=== PATIENT | female | born 1995 | race Caucasian/White ===

== ENCOUNTER 2019-12-11 08:06 | Emergency (ER) | payer MEDICAID, OTHER ==
[2019-12-11] MEDS ORDERED: Lidocaine 1% with EPINEPHrine 1:100,000 20 ML MDV INJECT ONE (09:11)
[2019-12-11 09:12] VITALS: BP 137/92; PULSE 109
[2019-12-11] MEDS ORDERED: Bacitracin/Neomycin/Polymyxin B Oint 0.9 GM U/D Packet TOP ONE (09:32)
--- NOTE | 2019-12-11 09:49 | EDM.PDOC ---
ED HPI GENERAL MEDICAL PROBLEM - General Chief Complaint: Laceration Stated Complaint: LEG LACERATION Time Seen by Provider: 12/11/19 08:36 Source of Information: Reports: Patient, Police, Other (two close friends and her admissions officer) History Limitations: Reports: No Limitations - History of Present Illness INITIAL COMMENTS - FREE TEXT/NARRATIVE: Patient presents with a large laceration on right lower leg that happened 8 hours ago. She was drinking heavily last night and took a razor blade out of her shaver and cut herself. She has done this several times before but not in the last year or so. She tends to do it whenever she drinks much alcohol. She arrived via EMS after a friend called for her. She denies suicidal intent or serious self harm. She admits this cut went deeper than she intended. In the past she has been in treatment for alcohol and meth. No meth recently. She drinks rarely now but quite heavily when she does. Treatments DIRECTOR EXECUTIVE COMMUNICATIONS: Reports: Dressing(s) - Related Data Allergies Allergy/AdvReac Type Severity Reaction Status Date / Time morphine Allergy Unknown Airway Verified 12/11/19 08:39 Tightness Home Meds: Home Meds Ibuprofen 600 mg PO Q6HR PRN 07/17/19 [History] FLUoxetine HCl [Fluoxetine HCl] 20 mg PO DAILY 12/11/19 [History] Prazosin [Minpress] 1 mg PO BEDTIME 12/11/19 [History] traZODone HCl [Trazodone HCl] 50 mg PO BEDTIME 12/11/19 [History] valACYclovir HCl [valACYclovir] 1,000 mg PO DAILY 12/11/19 [History] Past Medical History - Past Health History Medical/Surgical History: Denies Medical/Surgical History HEENT History: Reports: None Cardiovascular History: Reports: Arrhythmia, Hypertension, Other (See Below) Other Cardiovascular History: Tachycardia due to caffeine and illicit drug use. Note preeclampsia as below. Respiratory History: Reports: Asthma, Bronchitis, Recurrent, Intubation, Previous, Other (See Below) Other Respiratory History: Exercise-induced asthma. Gastrointestinal History: Reports: Irritable Bowel Syndrome Genitourinary History: Reports: STD, Other (See Below) Other Genitourinary History: Chlamydia previously treated in 2018. Renal reflux treated with medical therapy during childhood. Currently being treated for H erpes 1 & 2. SHEET METAL MECHANIC History: Reports: , Other (See Below) Other SHEET METAL MECHANIC History: Emergent @ 38 weeks gestation secondary to preeclampsia with previous induction complicated by placental abruption and secondary hemmorhage at with transfusion of 4 units of packed red blood cells at that time on 05/14/15. Musculoskeletal History: Reports: None Neurological History: Reports: None Psychiatric History: Reports: Addiction, Anxiety, Depression, Psych Hospit alization(s), Suicide Attempt, Suicidal Ideation, Other (See Below) Other Psychiatric History: History of alcohol and illicit drug abuse as below. Note suicidal ideation with repeat gesture reactions, cutting wrists and etc. initial inpatient treatment at age 11 with additional inpatient care in September 2013 for her depression and alcohol abuse. [facility] in [place] for treatment of methamphetamine addiction in 2017. Hematologic History: Reports: Blood Transfusion(s), Other (See Below) Other Hematologic History: Blood transfusions secondary to placental abruption as above. Immunologic History: Reports: None Oncologic (Cancer) History: Reports: None Dermatologic History: Reports: None - Infectious Disease History Infectious Disease History: Reports: Herpes Other Infectious Disease History: Chlamydia as above. - Past Surgical History Head Surgeries/Procedures: Reports: None HEENT Surgical History: Reports: Oral Surgery, Other (See Below) Other HEENT Surgeries/Procedures: Multiple teeth extractions. Cardiovascular Surgical History: Reports: None Respiratory Surgical History: Reports: None GI Surgical History: Reports: None Female Surgical History: Reports: Section, Other (See Below) Other Female Surgeries/Procedures: Emergent as above on 05/14/15. Neurological Surgical History: Reports: None Musculoskeletal Surgical History: Reports: None Oncologic Surgical History: Reports: None Dermatological Surgical History: Reports: Other (See Below) - Past Imaging History Past Imaging History: Reports: CAT Scan (CT of the abdomen and pelvis on 04/17/14 11/18/12, and 03/31/11.), Ultrasound (Rodrigo ultrasound on 03/28/11) Social & Family History - Family History Family Medical History: Noncontributory Psychiatric: Reports: Anxiety, Depression, Other (See Below) Other Psychiatric Family History: Anxiety depression disorder with alcohol abuse in father. 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 Denies: Neck Pain, Shoulder Pain, Arm Pain, Back Pain Skin: Denies: Cyanosis, Jaundice, Mottled, Pallor, Diaphoresis Neurological: Denies: Confusion, Dizziness, Headache, Seizure, Syncope, Trouble Speaking, Difficulty Walking Psychiatric: Denies: Agitation, Anxiety, Confusion ED EXAM, SKIN/RASH Exam: See Below Exam Limited By: No Limitations General Appearance: Alert, WD/WN, No Apparent Distress Eye Exam: Bilateral Eye: EOMI, Normal Inspection, PERRL Ears: Normal External Exam, Hearing Grossly Normal Nose: Normal Inspection, No Blood Throat/Mouth: Normal Inspection, Normal Lips, Normal Voice, No Airway Compromise Head: Atraumatic, Normocephalic Neck: Normal Inspection, Full Range of Motion Respiratory/Chest: No Respiratory Distress, Lungs Clear, Normal Breath Sounds Cardiovascular: Regular Rate, Rhythm, No Murmur GI/Abdominal: Normal Bowel Sounds, Soft, Tender (a little tender suprapubic) Back Exam: Normal Inspection, Full Range of Motion. No: CVA Tenderness (L), CVA Tenderness (R) Extremities: Normal Range of Motion, No Pedal Edema, Normal Capillary Refill, Other (Approximately 7 cm transverse laceration of lateral middle lower right leg. It is gaping and goes into the subcutaneous layers. No nerve, tendon or muscle involvement. Distal CMS intact with normal sensation locally as well.) Neurological: Alert, Oriented, Normal Cognition, Normal Gait, No Motor/Sensory Deficits Psychiatric: Normal Affect, Normal Mood Skin: Warm, Dry, Intact, Normal Color, No Rash ED SKIN PROCEDURES - Laceration/Wound Repair Right Lower Lateral Leg Appearance: Subcutaneous, Linear, Clean Distal NVT: Neuro & Vascular Intact, No Tendon Injury Anesthetic Type: Local Local Anesthesia - Lidocaine (Xylocaine): 1% with EPI Local Anesthetic Volume: 5cc Skin Prep: Chlorhexidine (Hibiciens), Saline Saline Irrigation (cc's): 300 Exploration/Debridement/Repair: Wound Explored, In a Bloodless Field, Explored to Base Closed with: Sutures Lac/Wound length In cm: 7 Suture Size: 4-0 # of Sutures: 14 Suture Type: Nylon, Interrupted, Simple Suture Size: Other (0) # of Sutures: 4 Repaired with: Vicryl Drain Placement: No Sterile Dressing Applied: Nurse Tetanus Status Addressed: Yes Complications: No Course - Vital Signs Last Recorded V/S: Last Vital Signs Temp 98 F 12/11/19 08:20 Pulse 109 H 12/11/19 08:20 Resp 16 12/11/19 08:20 BP 137/92 H 12/11/19 08:20 Pulse Ox 94 L 12/11/19 08:20 - Orders/Labs/Meds Meds: Medications Discontinued Medications Generic Name Dose Route Start Last Admin Trade Name Tabatha PRN Reason Stop Dose Admin Lidocaine/Epinephrine 5 ml 12/11/19 09:11 12/11/19 09:11 Xylocaine 1% With Epinephrine 1:100,000 INJECT 12/11/19 09:12 5 ml ONETIME ONE Administration Neomycin/Polymyxin/Bacitracin 1 each 12/11/19 09:32 Triple Antibiotic Oint TOP 12/11/19 09:33 ONETIME ONE - Re-Assessments/Exams Free Text/Narrative Re-Assessment/Exam: 12/11/19 10:00 Laceration sutured using sterile technique throughout. Patient tolerated the procedure well. Tetanus status 4 years s/p per our records. Discussed findings and treatment plan with patient and her friends who are helping her for now. Her admissions officer is here and visited with her. aoc operations intelligence chief here also. Patient will be discharged to home and will be followed closely by admissions officer, who will be developing a plan for going forward concerning alcohol treatment, etc. Patient discharged to home in stable condition. 12/11/19 10:24 After patient was discharged I remembered we had talked about doing a UA for possible UTI. The nurse will inform patient to follow up with her PCP for this. Departure - Departure Time of Disposition: 09:38 Disposition: Home, Self-Care 01 Condition: Good Clinical Impression: Laceration of lower leg without complication Qualifiers: Encounter type: initial encounter Laterality: right Qualified Code(s): S81.811A - Laceration without foreign body, right lower leg, initial encounter - Discharge Information Instructions: Sutured Wound Care, [id number] Referrals: Janny Villareal MD [Physician] - Additional Instructions: Keep the wound clean and dry except for showering. Use topical antibiotic ointment or petroleum jelly daily over the stitches. Cover with sterile bandages daily. Use Ibuprofen or Tylenol as directed for pain control if needed. Follow up with your PCP in ten days for suture removal. Recheck sooner if any sign of infection or other problems. Sepsis Event Note (ED) - Evaluation Sepsis Screening Result: No Definite Risk - Focused Exam Vital Signs: Vital Signs Temp Pulse Resp BP Pulse Ox 12/11/19 08:20 98 F 109 H 16 137/92 H 94 L
== END 2019-12-11 10:05 | disposition home or self-care (01) ==
LOC: KA.ED 08:06
DX: S81.811A Laceration without foreign body, right lower leg, initial encounter (principal); I10 Essential (primary) hypertension; F32.9 Major depressive disorder, single episode, unspecified; J45.909 Unspecified asthma, uncomplicated; F41.9 Anxiety disorder, unspecified; Z79.899 Other long term (current) drug therapy; Z88.5 Allergy status to narcotic agent; W27.8XXA Contact with other nonpowered hand tool, initial encounter
CPT/HCPCS: 12002; 12032; 99283-25; 99284

== ENCOUNTER 2020-01-19 10:37 | Emergency (ER) | payer MEDICAID ==
[2020-01-19 10:55] VITALS: BP 123/76; PULSE 100
[2020-01-19] MEDS: Fluconazole 100 MG Tab PO ONE (11:44)
--- NOTE | 2020-01-19 11:51 | EDM.PDOC ---
ED HPI GENERAL MEDICAL PROBLEM - General Chief Complaint: Genitourinary Problem Stated Complaint: UTI?? YEAST INFECTION? Time Seen by Provider: 01/19/20 10:45 Source of Information: Reports: Patient History Limitations: Reports: No Limitations - History of Present Illness INITIAL COMMENTS - FREE TEXT/NARRATIVE: 24-year-old female presents emergency room with the complaint of a painful urination and discharge over the last 48-72 hours. She has been trying some [id number] yeast preparation with no relief. Denies any fever or chills, no nausea or vomiting no abdominal pain. She's noticed a little bit of lower back discomfort. She states that she is in a monogamous relationship. She had STD testing a month ago and was positive for herpes. She was started on acyclovir. She states her tests were negative for gonorrhea, syphilis. She denies any significant hematuria. She has noticed some white discharge. Onset: Gradual Onset Date: 01/16/20 Duration: Day(s):, Constant Location: Reports: Pelvis Quality: Reports: Burning Severity: Moderate Improves with: Reports: None Worsens with: Reports: None Associated Symptoms: Denies: Fever/Chills, Nausea/Vomiting Treatments DATA CENTER ARCHITECT: Reports: Other (see below) (Irmg-[id number] yeast preparation) Vaginal Pain Score (Numeric/FACES): 3 - Related Data Allergies Allergy/AdvReac Type Severity Reaction Status Date / Time morphine Allergy Unknown Airway Verified 01/19/20 10:51 Tightness Home Meds: Home Meds Ibuprofen 800 mg PO TID PRN 07/17/19 [History] FLUoxetine HCl [Fluoxetine HCl] 20 mg PO DAILY 12/11/19 [History] Prazosin [Minpress] 1 mg PO BEDTIME 12/11/19 [History] traZODone HCl [Trazodone HCl] 50 mg PO BEDTIME 12/11/19 [History] valACYclovir HCl [valACYclovir] 1,000 mg PO DAILY 12/11/19 [History] Past Medical History - Past Health History Medical/Surgical History: Denies Medical/Surgical History HEENT History: Reports: None Cardiovascular History: Reports: Arrhythmia, Hypertension, Other (See Below) Other Cardiovascular History: Tachycardia due to caffeine and illicit drug use. Note preeclampsia as below. Respiratory History: Reports: Asthma, Bronchitis, Recurrent, Other (See Below) Other Respiratory History: Exercise-induced asthma. Gastrointestinal History: Reports: Irritable Bowel Syndrome Genitourinary History: Reports: STD, Other (See Below) Other Genitourinary History: Chlamydia previously treated in 2018. Renal reflux treated with medical therapy during childhood. Currently being treated for Herpes 1 & 2. HOOD FITTER History: Reports: , Other (See Below) Other HOOD FITTER History: Emergent @ 38 weeks gestation secondary to preeclampsia with previous induction complicated by placental abruption and secondary hemmorhage at with transfusion of 4 units of packed red blood cells at that time on 05/14/15. Musculoskeletal History: Reports: None Neurological History: Reports: None Psychiatric History: Reports: Addiction, Anxiety, Depression, Psych Hospitalization(s), Suicide Attempt, Suicidal Ideation, Other (See Below) Other Psychiatric History: History of alcohol and illicit drug abuse as below. Note suicidal ideation with repeat gesture reactions, cutting wrists and etc. initial inpatient treatment at age 11 with additional inpatient care in September 2013 for her depression and alcohol abuse. [facility] in [place] [id number] for treatment of methamphetamine addiction in 2016. Hematologic History: Reports: Blood Transfusion(s), Other (See Below) Other Hematologic History: Blood transfusions secondary to placental abruption as above. Immunologic History: Reports: None Oncologic (Cancer) History: Reports: None Dermatologic History: Reports: None - Infectious Disease History Infectious Disease History: Reports: Chicken Pox, Herpes Other Infectious Disease History: Chlamydia as above. - Past Surgical History Head Surgeries/Procedures: Reports: None HEENT Surgical History: Reports: Oral Surgery, Other (See Below) Other HEENT Surgeries/Procedures: Multiple teeth extractions. Cardiovascular Surgical History: Reports: None Respiratory Surgical History: Reports: None GI Surgical History: Reports: None Female Surgical History: Reports: Section, Other (See Below) Other Female Surgeries/Procedures: Emergent as above on 05/14/15. Neurological Surgical History: Reports: None Musculoskeletal Surgical History: Reports: None Oncologic Surgical History: Reports: None - Past Imaging History Past Imaging History: Reports: CAT Scan (CT of the abdomen and pelvis on 04/17/14 11/18/12, and 03/31/11.), Ultrasound (Rodrigo ultrasound on 03/28/11) Social & Family History - Family History Family Medical History: Noncontributory Psychiatric: Reports: Anxiety, Depression, Other (See Below) Other Psychiatric Family History: Anxiety depression disorder with alcohol abuse in father. 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 ED EXAM, RENAL/ - Physical Exam Exam: See Below Exam Limited By: No Limitations General Appearance: Alert, WD/WN, No Apparent Distress Ears: Hearing Grossly Normal Nose: Normal Inspection Throat/Mouth: Normal Inspection, Normal Voice, No Airway Compromise Head: Atraumatic Neck: Normal Inspection Respiratory/Chest: No Respiratory Distress, Lungs Clear, Normal Breath Sounds, No Accessory Muscle Use Cardiovascular: Normal Peripheral Pulses, Regular Rate, Rhythm, No Murmur GI/Abdominal: Normal Bowel Sounds, Soft, Non-Tender (Female) Exam: Vaginal Discharge Back Exam: Normal Inspection, Full Range of Motion. No: CVA Tenderness (L), CVA Tenderness (R) Extremities: Normal Inspection, Normal Range of Motion Neurological: Alert, Oriented, No Motor/Sensory Deficits Psychiatric: Normal Affect, Normal Mood Skin Exam: Warm, Dry, Intact, Normal Color, No Rash Lymphatic: No Adenopathy Course - Vital Signs Last Recorded V/S: Last Vital Signs Temp 99.3 F 01/19/20 10:51 Pulse 100 01/19/20 10:51 Resp 18 01/19/20 10:51 BP 123/76 01/19/20 10:51 Pulse Ox 99 01/19/20 10:51 - Orders/Labs/Meds Orders: Active Orders 24 hr Category Date Time Status CULTURE URINE [RM] Stat Lab 01/19/20 11:26 Ordered Labs: Laboratory Tests 01/19/20 Range/Units 11:01 Specimen Type Urincc Urine Color Yellow (YELLOW) Urine Appearance Clear (CLEAR) Urine pH 7.0 (5.0-9.0) Ur Specific [place] 1.025 (1.005-1.030) Urine Protein Negative (NEGATIVE) mg/dL Urine Glucose (UA) Negative (NEGATIVE) mg/dL Urine Ketones Negative (NEGATIVE) mg/dL Urine Occult Blood Trace-lysed H (NEGATIVE) Urine Nitrite Negative (NEGATIVE) Urine Bilirubin Negative (NEGATIVE) Urine Urobilinogen 0.2 (0.2-1.0) E.U./dL Ur Leukocyte Esterase Negative (NEGATIVE) Urine RBC 0-5 (0-5) /HPF Urine WBC 10-20 H (0-5) /HPF Ur Epithelial Cells Many H /LPF Urine Bacteria Many H (NONE TO FEW) /HPF Meds: Medications Discontinued Medications Generic Name Dose Route Start Last Admin Trade Name Freq PRN Reason Stop Dose Admin Fluconazole 200 mg 01/19/20 11:27 01/19/20 11:44 Diflucan PO 01/19/20 11:28 200 mg ONETIME ONE Administration Departure - Departure Time of Disposition: 11:54 Disposition: Home, Self-Care 01 Condition: Good Clinical Impression: Yeast infection involving the vagina and surrounding area - Discharge Information Instructions: Vaginal Yeast Infection, Adult, Urinary Tract Infection, Adult, [id number] Referrals: Unique Alvares, POWER DIGGER OPERATOR [Primary Care Provider] - Forms: ED Department Discharge Additional Instructions: 1. Diflucan 100 mg 2 by mouth 1 time for yeast infection. 2. Urine has been cultured you should follow-up with your primary care with these results within 48-72 hours. 3. Follow-up with primary care if the itching and burning and discharge does not improve. Sepsis Event Note (ED) - Evaluation Sepsis Screening Result: No Definite Risk - Focused Exam Vital Signs: Vital Signs Temp Pulse Resp BP Pulse Ox 01/19/20 10:51 99.3 F 100 18 123/76 99 - My Orders Last 24 Hours: My Active Orders 01/19/20 11:26 CULTURE URINE [RM] Stat - Assessment/Plan Last 24 Hours: My Active Orders 01/19/20 11:26 CULTURE URINE [RM] Stat Assessment:: 1. Yeast infection genital. 2. Possible urinary tract infection cultures pending. Plan: 1. Diflucan 100 mg 2 by mouth 1 time for yeast infection. 2. Urine has been cultured you should follow-up with your primary care with these results within 48-72 hours. 3. Follow-up with primary care if the itching and burning and discharge does not improve.
== END 2020-01-19 12:00 | disposition home or self-care (01) ==
LOC: KA.ED 10:37
DX: B37.3 Candidiasis of vulva and vagina (principal); I10 Essential (primary) hypertension; J45.909 Unspecified asthma, uncomplicated; F41.9 Anxiety disorder, unspecified; F32.9 Major depressive disorder, single episode, unspecified; F17.210 Nicotine dependence, cigarettes, uncomplicated; Z88.5 Allergy status to narcotic agent; Z79.899 Other long term (current) drug therapy; Z98.890 Other specified postprocedural states
CPT/HCPCS: 81001; 87086; 87088; 87186; 99283; 99284; A9270-GY

== ENCOUNTER 2020-09-05 09:25 | Emergency (ER) | payer MEDICAID ==
--- NOTE | 2020-09-05 09:58 | EDM.PDOC ---
ED HPI GENERAL MEDICAL PROBLEM - General Chief Complaint: ENT Problem Stated Complaint: SORE THROAT Time Seen by Provider: 09/05/20 09:49 - History of Present Illness INITIAL COMMENTS - FREE TEXT/NARRATIVE: Presents emergency room for chief complaint of sore throat. She woke up this morning with a sore throat and noticed that her uvula was swollen. She denies it being deviated. Denies any other URI symptoms. Patient denies any trouble breathing or trouble swallowing however does hurt to swallow. History of strep in the past, no new exposures. She notes starting to vape again and she does smoke daily. She did get her COVID-19 Pfizer vaccine 48 hours ago. There is no stridor or angioedema wheezing or any other concerning symptoms. - Related Data Allergies Allergy/AdvReac Type Severity Reaction Status Date / Time morphine Allergy Unknown Airway Verified 01/19/20 10:51 Tightness Home Meds: Home Meds Ibuprofen 800 mg PO TID PRN 07/17/19 [History] FLUoxetine HCl [Fluoxetine HCl] 20 mg PO DAILY 12/11/19 [History] Prazosin [Minpress] 1 mg PO BEDTIME 12/11/19 [History] traZODone HCl [Trazodone HCl] 50 mg PO BEDTIME 12/11/19 [History] valACYclovir HCl [valACYclovir] 1,000 mg PO DAILY 12/11/19 [History] Past Medical History - Past Health History Medical/Surgical History: Denies Medical/Surgical History HEENT History: Reports: None Cardiovascular History: Reports: Arrhythmia, Hypertension, Other (See Below) Other Cardiovascular History: Tachycardia due to caffeine and illicit drug use. Note preeclampsia as below. Respiratory History: Reports: Asthma, Bronchitis, Recurrent, Other (See Below) Other Respiratory History: Exercise-induced asthma. Gastrointestinal History: Reports: Irritable Bowel Syndrome Genitourinary History: Reports: STD, Other (See Below) Other Genitourinary History: Chlamydia previously treated in 2018. Renal reflux treated with medical therapy during childhood. Currently being treated for Herpes 1 & 2. INCINERATOR ATTENDANT History: Reports: , Other (See Below) Other INCINERATOR ATTENDANT History: Emergent @ 38 weeks gestation secondary to preeclampsia with previous induction complicated by placental abruption and secondary hemmorhage at with transfusion of 4 units of packed red blood cells at that time on 05/14/15. Musculoskeletal History: Reports: None Neurological History: Reports: None Psychiatric History: Reports: Addiction, Anxiety, Depression, Psych Hospitalization(s), Suicide Attempt, Suicidal Ideation, Other (See Below) Other Psychiatric History: History of alcohol and illicit drug abuse as below. Note suicidal ideation with repeat gesture reactions, cutting wrists and etc. initial inpatient treatment at age 11 with additional inpatient care in September 2013 for her depression and alcohol abuse. [facility] in [place] [address] for treatment of methamphetamine addiction in 2016. Hematologic History: Reports: Blood Transfusion(s), Other (See Below) Other Hematologic History: Blood transfusions secondary to placental abruption as above. Immunologic History: Reports: None Oncologic (Cancer) History: Reports: None Dermatologic History: Reports: None - Infectious Disease History Infectious Disease History: Reports: Chicken Pox, Herpes Other Infectious Disease History: Chlamydia as above. - Past Surgical History Head Surgeries/Procedures: Reports: None HEENT Surgical History: Reports: Oral Surgery, Other (See Below) Other HEENT Surgeries/Procedures: Multiple teeth extractions. Cardiovascular Surgical History: Reports: None Respiratory Surgical History: Reports: None GI Surgical History: Reports: None Female Surgical History: Reports: Section, Other (See Below) Other Female Surgeries/Procedures: Emergent as above on 05/14/15. Neurological Surgical History: Reports: None Musculoskeletal Surgical History: Reports: None Oncologic Surgical History: Reports: None - Past Imaging History Past Imaging History: Reports: CAT Scan (CT of the abdomen and pelvis on 04/17/14 11/18/12, and 03/31/11.), Ultrasound (Rodrigo ultrasound on 03/28/11) Social & Family History - Family History Family Medical History: No Pertinent Family History Psychiatric: Reports: Anxiety, Depression, Other (See Below) Other Psychiatric Family History: Anxiety depression disorder with alcohol abuse in father. 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 Constitutional: Reports: Fatigue. Denies: Fever, Chills HEENT: Reports: Throat Pain. Denies: Throat Swelling Respiratory: Reports: No Symptoms. Denies: Cough GI/Abdominal: Reports: No Symptoms Musculoskeletal: Reports: No Symptoms Skin: Reports: No Symptoms Neurological: Reports: No Symptoms ED EXAM, ENT - Physical Exam Exam: See Below Exam Limited By: No Limitations General Appearance: Alert, WD/WN, No Apparent Distress Ears: Normal Canal, Normal TMs Nose: Normal Inspection, Normal Mucousa Mouth/Throat: Pharyngeal Erythema, Throat Pain, Uvular Edema. No: Lip Swelling, Peritonsillar Mass, Throat Swelling, Tongue Swelling, Tonsillar Exudates, Tonsillar Swelling, Uvular Deviation Neck: Normal Inspection, Supple, Non-Tender, Full Range of Motion, Other (mild cervical lymphadenopathy ) Respiratory/Chest: No Respiratory Distress, Lungs Clear, Normal Breath Sounds Cardiovascular: Normal Peripheral Pulses, Regular Rate, Rhythm Neurological: Alert, Oriented Psychiatric: Normal Affect, Normal Mood Skin: Warm, Dry, Intact, No Rash Course - Orders/Labs/Meds Orders: Active Orders 24 hr Category Date Time Status STREP SCRN A RAPID W CULT CONF [RM] Stat Lab 09/05/20 09:49 Ordered Meds: Medications Discontinued Medications Generic Name Dose Route Start Last Admin Trade Name Freq PRN Reason Stop Dose Admin Ibuprofen 400 mg 09/05/20 09:50 Ibuprofen 400 Mg Tab PO 09/05/20 09:51 ONETIME ONE - Re-Assessments/Exams Free Text/Narrative Re-Assessment/Exam: 09/05/20 09:57 Rapid strep reflex with throat culture, 400 milligrams a ibuprofen given. Gargle salt water rinses discussed with patient. Doubt this is mono would not change plan of care measures patient not active in sports, could be related to the vaccine administration or due to a viral pharyngitis or irritant from the vaping and smoking. Tobacco cessation discussed with patient. Patient verbalized understanding. Patient was notified of rapid strep was negative she will be contacted with throat culture results. Departure - Departure Time of Disposition: 09:58 Disposition: DC/Tfer to Hospice - Home 48 Condition: Good Clinical Impression: Sore throat, Viral pharyngitis - Discharge Information *PRESCRIPTION DRUG MONITORING PROGRAM REVIEWED*: No *COPY OF PRESCRIPTION DRUG MONITORING REPORT IN PATIENT TORO: No Instructions: Pharyngitis, [id number] Referrals: Janny Villareal MD [Primary Care Provider] - Additional Instructions: ibuprofen 400 mg every 4-6 hours as need for pain and swelling, always take it with food gargle warm salt water rinses watch out for neck swelling, deviated uvula , or any worsening symptoms. I do encourage you to stop smoking and vaping NOW before further damage is resulting with your throat. - My Orders Last 24 Hours: My Active Orders 09/05/20 09:49 STREP SCRN A RAPID W CULT CONF [RM] Stat - Assessment/Plan Last 24 Hours: My Active Orders 09/05/20 09:49 STREP SCRN A RAPID W CULT CONF [RM] Stat
[2020-09-05] MEDS: Ibuprofen 400 MG Tab PO ONE (10:00)
[2020-09-05 10:25] VITALS: BP 132/86; PULSE 94
== END 2020-09-05 10:05 | disposition home or self-care (01) ==
LOC: KA.ED 09:25
DX: J02.9 Acute pharyngitis, unspecified (principal); I10 Essential (primary) hypertension; J45.909 Unspecified asthma, uncomplicated; Z88.5 Allergy status to narcotic agent; Z79.899 Other long term (current) drug therapy
CPT/HCPCS: 87070; 87430; 99283; A9270

== ENCOUNTER 2020-09-12 17:50 | Emergency (ER) | payer MEDICAID ==
[2020-09-12 18:25] VITALS: BP 137/72; PULSE 114
[2020-09-12] MEDS ORDERED: Lidocaine 1% 20 ML MDV ONE (18:29)
[2020-09-12] MEDS ORDERED: cefTRIAXone 2 GM Vial IVPUSH ONE (19:05)
[2020-09-12] MEDS ORDERED: cefTRIAXone 2 GM Vial ONE (19:06)
--- NOTE | 2020-09-12 19:21 | EDM.PDOC ---
ED HPI GENERAL MEDICAL PROBLEM - General Chief Complaint: General Stated Complaint: LEFT KNEE REDNESS Time Seen by Provider: 09/12/20 18:00 Source of Information: Reports: Patient History Limitations: Reports: No Limitations - History of Present Illness INITIAL COMMENTS - FREE TEXT/NARRATIVE: 25-year-old female presents emergency room with complaints of swelling and redness overlying her left anterior knee. She has noticed that pain discomfort is increased over the last 24 hours and has had some discomfort to the knee for 2 days. She reports she was working on her house carrying out some carpet this past week. She also states to me that she has a significant past medical history of drug dependency and has been using methamphetamine. She denies any IV drug use. She denies history of hepatitis or HIV. She denies any swelling about the knee other than anteriorly. She denies any fever or chills. She denies other multiple multiple joint arthralgia complaints. Onset: Gradual Onset Date: 09/18/20 Duration: Hour(s):, Getting Worse Location: Reports: Lower Extremity, Left (left knee) Quality: Reports: Ache Severity: Mild Improves with: Reports: None Worsens with: Reports: Movement Associated Symptoms: Reports: No Other Symptoms Left Knee Pain Score (Numeric/FACES): 8 - Related Data Allergies Allergy/AdvReac Type Severity Reaction Status Date / Time morphine Allergy Redness Verified 09/12/20 18:26 Home Meds: Home Meds Ibuprofen 800 mg PO TID PRN 07/17/19 [History] FLUoxetine HCl [Fluoxetine HCl] 40 mg PO DAILY 12/11/19 [History] Prazosin [Minpress] 1 mg PO BEDTIME 12/11/19 [History] valACYclovir HCl [valACYclovir] 1,000 mg PO DAILY 12/11/19 [History] Eszopiclone [Lunesta] 2 mg PO BEDTIME PRN 09/12/20 [History] QUEtiapine [SEROquel] 100 mg PO DAILY 09/12/20 [History] Past Medical History - Past Health History Medical/Surgical History: Denies Medical/Surgical History HEENT History: Reports: None Cardiovascular History: Reports: Arrhythmia, Hypertension, Other (See Below) Other Cardiovascular History: Tachycardia due to caffeine and illicit drug use. Note preeclampsia as below. Respiratory History: Reports: Asthma, Bronchitis, Recurrent, Other (See Below) Other Respiratory History: Exercise-induced asthma. Gastrointestinal History: Reports: Irritable Bowel Syndrome Genitourinary History: Reports: STD, Other (See Below) Other Genitourinary History: Chlamydia previously treated in 2018. Renal reflux treated with medical therapy during childhood. Currently being treated for Herpes 1 & 2. BLEACH PACKER History: Reports: , Other (See Below) Other BLEACH PACKER History: Emergent @ 38 weeks gestation secondary to preeclampsia with previous induction complicated by placental abruption and secondary hemmorhage at with transfusion of 4 units of packed red blood cells at that time on 05/14/15. Musculoskeletal History: Reports: None Neurological History: Reports: None Psychiatric History: Reports: Addiction, Anxiety, Depression, Psych Hospitalization(s), Suicide Attempt, Suicidal Ideation, Other (See Below) Other Psychiatric History: History of alcohol and illicit drug abuse as below. Note suicidal ideation with repeat gesture reactions, cutting wrists and etc. initial inpatient treatment at age 11 with additional inpatient care in September 2013 for her depression and alcohol abuse. [facility] in [place] [address] for treatment of methamphetamine addiction in 2016. Hematologic History: Reports: Blood Transfusion(s), Other (See Below) Other Hematologic History: Blood transfusions secondary to placental abruption as above. Immunologic History: Reports: None Oncologic (Cancer) History: Reports: None Dermatologic History: Reports: None - Infectious Disease History Infectious Disease History: Reports: Chicken Pox, Herpes Other Infectious Disease History: Chlamydia as above. - Past Surgical History Head Surgeries/Procedures: Reports: None HEENT Surgical History: Reports: Oral Surgery, Other (See Below) Other HEENT Surgeries/Procedures: Multiple teeth extractions. Cardiovascular Surgical History: Reports: None Respiratory Surgical History: Reports: None GI Surgical History: Reports: None Female Surgical History: Reports: Section, Other (See Below) Other Female Surgeries/Procedures: Emergent as above on 05/14/15. Neurological Surgical History: Reports: None Musculoskeletal Surgical History: Reports: None Oncologic Surgical History: Reports: None Dermatological Surgical History: Reports: Other (See Below) - Past Imaging History Past Imaging History: Reports: CAT Scan (CT of the abdomen and pelvis on 04/17/14 11/18/12, and 03/31/11.), Ultrasound (Rodrigo ultrasound on 03/28/11) Social & Family History - Family History Family Medical History: No Pertinent Family History Psychiatric: Reports: Anxiety, Depression, Other (See Below) Other Psychiatric Family History: Anxiety depression disorder with alcohol abuse in father. - Tobacco Use Tobacco Use Status *Q: Current Every Day Tobacco User Years of Tobacco use: 12 Packs/Tins Daily: 2 Used Tobacco, but Quit: No Second Hand Smoke Exposure: Yes - Caffeine Use Caffeine Use: Reports: Coffee, Energy Drinks, Soda Other Caffeine Use: 2-4 bottles of redbull a day. 1 cup of coffee daily. 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 Denies: Joint Pain Skin: Reports: Wound (puncture wound left knee), Change in Color (redness, left knee) Neurological: Reports: No Symptoms Psychiatric: Reports: Anxiety, Depression Hematologic/Lymphatic: Reports: No Symptoms Immunologic: Reports: No Symptoms ED EXAM, GENERAL - Physical Exam Exam: See Below Exam Limited By: No Limitations General Appearance: Alert, Anxious Eye Exam: Bilateral Eye: EOMI Ears: Hearing Grossly Normal Throat/Mouth: Normal Voice, No Airway Compromise Head: Atraumatic Neck: Normal Inspection Respiratory/Chest: No Respiratory Distress Back Exam: Normal Inspection Extremities: Increased Warmth (left knee anterior), Redness (left anterior knee), Other (tenderness and swelling left knee). No: Joint Swelling, Limited Range of Motion Neurological: Alert, Oriented, No Motor/Sensory Deficits Psychiatric: Anxious Skin Exam: Erythema (left knee anterior), Tattoo(s), Wound/Incision (puncture wound left knee anterior), Other (previous cutting scars wrist and legs) ED GENERAL MEDICAL PROCEDURES - Additional/Other Procedure(s) Other (Free Text) Procedure(s): Left knee was sterilely prepped with ChloraPrep. 5 cc of lidocaine was injected into the prepatellar bursa. 18-gauge needle and 10 cc syringe was used for aspirating bloody fluid for cultures. Aerobic, anaerobic, and Gram stain were ordered. Course - Vital Signs Last Recorded V/S: Last Vital Signs Temp 98.1 F 09/12/20 18:18 Pulse 114 H 09/12/20 18:18 Resp 20 09/12/20 18:18 BP 137/72 09/12/20 18:18 Pulse Ox 99 09/12/20 18:18 - Orders/Labs/Meds Orders: Active Orders 24 hr Category Date Time Status Knee Min 4V Lt [CR] Stat Exams 09/12/20 18:13 Ordered CULTURE WOUND [RM] Stat Lab 09/12/20 19:21 Ordered Labs: Laboratory Tests 09/12/20 Range/Units 18:20 WBC 13.45 H (5.00-10.00) 10^3/uL RBC 4.00 (3.80-5.50) 10^6/uL Hgb 12.2 (12.0-16.0) g/dL Hct 34.9 L (37.0-47.0) % MCV 87.3 (82.0-92.0) fL MCH 30.5 (27.0-31.0) pg MCHC 35.0 (32.0-36.0) g/dL RDW 14.4 (11.5-14.5) % Plt Count 398 (150-400) 10^3/uL MPV 10.0 (7.4-10.4) fL Immature Gran % (Auto) 0.2 (0.0-5.0) % Neut % (Auto) 77.8 H (50.0-70.0) % Lymph % (Auto) 12.9 L (20.0-40.0) % Foard % (Auto) 8.6 H (2.0-8.0) % Eos % (Auto) 0.2 L (1.0-3.0) % Baso % (Auto) 0.3 (0.0-1.0) % Neut # (Auto) 10.47 H (2.50-7.00) 10^3/uL Lymph # (Auto) 1.73 (1.00-4.00) 10^3/uL Foard # (Auto) 1.15 H (0.10-0.80) 10^3/uL Eos # (Auto) 0.03 L (0.10-0.30) 10^3/uL Baso # (Auto) 0.04 (0.00-0.10) 10^3/uL Immature Gran # (Auto) 0.03 (0.00-0.50) 10^3/uL Meds: Medications Discontinued Medications Generic Name Dose Route Start Last Admin Trade Name Tabatha PRN Reason Stop Dose Admin Ceftriaxone Sodium 2 gm 09/12/20 19:05 09/12/20 19:16 Ceftriaxone 2 Gm Vial IVPUSH 09/12/20 19:06 2 gm ONETIME ONE Administration Ceftriaxone Sodium Confirm 09/12/20 19:06 09/12/20 19:42 Ceftriaxone 2 Gm Vial Administered 09/12/20 19:07 Not Given Dose 2 gm .ROUTE .STK-MED ONE Lidocaine HCl Confirm 09/12/20 18:29 09/12/20 19:42 Lidocaine 1% 20 Ml Mdv Administered 09/12/20 18:30 Not Given Dose 20 ml .ROUTE .STK-MED ONE Lidocaine HCl 20 ml 09/12/20 19:40 09/12/20 19:00 Lidocaine 1% 20 Ml Mdv INJECT 09/12/20 19:41 5 ml ONETIME ONE Administration - Re-Assessments/Exams Free Text/Narrative Re-Assessment/Exam: 09/12/20 22:05 Patient was given 2 g of IV Rocephin tonight. IV was removed. Patient has a strong drug history and is currently using methamphetamine. She will return to the hospital for outpatient IV antibiotics for the next 48 hours. Departure - Departure Time of Disposition: 19:35 Disposition: Home, Self-Care 01 Condition: Good Clinical Impression: Septic prepatellar bursitis of left knee, Methamphetamine dependence - Discharge Information Instructions: Prepatellar Bursitis Referrals: Janny Villareal MD [Primary Care Provider] - Forms: ED Department Discharge Care Plan Goals: 1. Rocephin 2 g IV every 24 hours for 48 hours. 2. Keflex 500 mg 3 times daily for 7 days. Begin after 48 hours completion of IV antibiotics 3. Follow-up Monday with your primary care to review culture and sensitivities from left knee bursa aspiration. Cultures include Gram stain, anaerobic, aerobic cultures. 4. Discussed with the patient possibility of needing an I&D left septic prepatellar bursa if this does not clear up with IV and oral antibiotics. Sepsis Event Note (ED) - Evaluation Sepsis Screening Result: No Definite Risk - Focused Exam Vital Signs: Vital Signs Temp Pulse Resp BP Pulse Ox 09/12/20 18:18 98.1 F 114 H 20 137/72 99 - My Orders Last 24 Hours: My Active Orders 09/12/20 18:13 Knee Min 4V Lt [CR] Stat 09/12/20 19:21 CULTURE WOUND [RM] Stat - Assessment/Plan Last 24 Hours: My Active Orders 09/12/20 18:13 Knee Min 4V Lt [CR] Stat 09/12/20 19:21 CULTURE WOUND [RM] Stat Assessment:: Left knee septic prepatellar bursitis Plan: 1. Rocephin 2 g IV every 24 hours for 48 hours. 2. Keflex 500 mg 3 times daily for 7 days. Begin after 48 hours completion of IV antibiotics 3. Follow-up Monday with your primary care to review culture and sensitivities from left knee bursa aspiration. Cultures include Gram stain, anaerobic, aerobic cultures. 4. Discussed with the patient possibility of needing an I&D left septic prepatellar bursa if this does not clear up with IV and oral antibiotics.
[2020-09-12] MEDS ORDERED: Lidocaine 1% 20 ML MDV INJECT ONE (19:40)
== END 2020-09-12 19:35 | disposition home or self-care (01) ==
LOC: KA.ED 17:50
DX: M70.42 Prepatellar bursitis, left knee (principal); F15.20 Other stimulant dependence, uncomplicated; I10 Essential (primary) hypertension; J45.909 Unspecified asthma, uncomplicated; Z72.0 Tobacco use; Z88.5 Allergy status to narcotic agent; Z79.899 Other long term (current) drug therapy
CPT/HCPCS: 20610; 36415; 73562-LT; 85025; 87070; 87075; 87205; 96374; 99283-25; 99284; J0696

== ENCOUNTER 2020-09-20 13:09 | Emergency (ER) | payer MEDICAID ==
[2020-09-20 13:21] VITALS: BP 128/83; PULSE 96
[2020-09-20 14:05] LABS: ANION GAP 13.7 mmol/L (5-15); CHLORIDE,CL 105 mmol/L (98-107); SODIUM,NA 144 mmol/L (136-145)
--- NOTE | 2020-09-20 14:26 | EDM.PDOC ---
ED HPI GENERAL MEDICAL PROBLEM - General Chief Complaint: General Stated Complaint: NOT FEELING WELL Time Seen by Provider: 09/20/20 13:59 Source of Information: Reports: Patient, Significant Other History Limitations: Reports: No Limitations - History of Present Illness INITIAL COMMENTS - FREE TEXT/NARRATIVE: Patient presents with a myriad of symptoms including tingling in her fingers and toes, burning with urination that started today, pain over her "kidneys", fever up to 99 degrees a couple times but never over 100, diarrhea for two days but is resolved now, cough and dyspnea that lasted for a couple days but is resolved now. She has relapsed in her meth use recently and hasn't been taking her regular medications (mostly psychotropics) for the last two weeks until last night when she restarted everything. A couple weeks ago she had a left knee effusion that was aspirated and later reported no growth on culture. She was started on IV antibiotics but only complete 2 of 3 doses of that and only 1 oral dose of Keflex. She says her knee is doing great now with no redness or swelling. Bilateral Feet Pain Score (Numeric/FACES): 7 Bilateral Hand Pain Score (Numeric/FACES): 7 - Related Data Allergies Allergy/AdvReac Type Severity Reaction Status Date / Time morphine Allergy Redness Verified 09/20/20 13:19 Home Meds: Home Meds Ibuprofen 800 mg PO TID PRN 07/17/19 [History] FLUoxetine HCl [Fluoxetine HCl] 40 mg PO DAILY 12/11/19 [History] Prazosin [Minpress] 1 mg PO BEDTIME 12/11/19 [History] valACYclovir HCl [valACYclovir] 1,000 mg PO DAILY 12/11/19 [History] Eszopiclone [Lunesta] 2 mg PO BEDTIME PRN 09/12/20 [History] QUEtiapine [SEROquel] 100 mg PO DAILY 09/12/20 [History] Past Medical History - Past Health History Medical/Surgical History: Denies Medical/Surgical History HEENT History: Reports: None Cardiovascular History: Reports: Arrhythmia, Hypertension, Other (See Below) Other Cardiovascular History: Tachycardia due to caffeine and illicit drug use. Note preeclampsia as below. Respiratory History: Reports: Asthma, Bronchitis, Recurrent, Other (See Below) Other Respiratory History: Exercise-induced asthma. Gastrointestinal History: Reports: Irritable Bowel Syndrome Genitourinary History: Reports: STD, Other (See Below) Other Genitourinary History: Chlamydia previously treated in 2018. Renal reflux treated with medical therapy during childhood. Currently being treated for Herpes 1 & 2. SAFETY SPECIALIST History: Reports: , Other (See Below) Other SAFETY SPECIALIST History: Emergent @ 38 weeks gestation secondary to preeclampsia with previous induction complicated by placental abruption and secondary hemmorhage at with transfusion of 4 units of packed red blood cells at that time on 05/14/15. Musculoskeletal History: Reports: None Neurological History: Reports: None Psychiatric History: Reports: Addiction, Anxiety, Depression, Psych Hospitalization(s), Suicide Attempt, Suicidal Ideation, Other (See Below) Other Psychiatric History: History of alcohol and illicit drug abuse as below. Note suicidal ideation with repeat gesture reactions, cutting wrists and etc. initial inpatient treatment at age 11 with additional inpatient care in September 2013 for her depression and alcohol abuse. [facility] in [place] [id number] for treatment of methamphetamine addiction in 2017. Hematologic History: Reports: Blood Transfusion(s), Other (See Below) Other Hematologic History: Blood transfusions secondary to placental abruption as above. Immunologic History: Reports: None Oncologic (Cancer) History: Reports: None Dermatologic History: Reports: None - Infectious Disease History Infectious Disease History: Reports: Chicken Pox, Herpes Other Infectious Disease History: Chlamydia as above. - Past Surgical History Head Surgeries/Procedures: Reports: None HEENT Surgical History: Reports: Oral Surgery, Other (See Below) Other HEENT Surgeries/Procedures: Multiple teeth extractions. Cardiovascular Surgical History: Reports: None Respiratory Surgical History: Reports: None GI Surgical History: Reports: None Female Surgical History: Reports: Section, Other (See Below) Other Female Surgeries/Procedures: Emergent as above on 05/14/15. Neurological Surgical History: Reports: None Musculoskeletal Surgical History: Reports: None Oncologic Surgical History: Reports: None Dermatological Surgical History: Reports: Other (See Below) - Past Imaging History Past Imaging History: Reports: CAT Scan (CT of the abdomen and pelvis on 04/17/14 11/18/12, and 03/31/11.), Ultrasound (Rodrigo ultrasound on 03/28/11) Social & Family History - Family History Family Medical History: No Pertinent Family History Psychiatric: Reports: Anxiety, Depression, Other (See Below) Other Psychiatric Family History: Anxiety depression disorder with alcohol abuse in father. - Caffeine Use Caffeine Use: Reports: Coffee, Energy Drinks, Soda Other Caffeine Use: 2-4 bottles of redbull a day. 1 cup of coffee daily. 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 Denies: Chills, Weakness HEENT: Denies: Ear Pain, Throat Pain, Vision Change Respiratory: Denies: Shortness of Breath, Cough (not now) Cardiovascular: Denies: Chest Pain, Lightheadedness, Syncope GI/Abdominal: Denies: Abdominal Pain, Diarrhea, Vomiting : Reports: Dysuria, Flank Pain (bilat) Musculoskeletal: Reports: No Symptoms Skin: Denies: Cyanosis, Jaundice, Mottled, Pallor, Diaphoresis Neurological: Reports: Tingling (in her fingers and toes). Denies: Confusion, Dizziness, Numbness, Seizure, Syncope, Trouble Speaking, Difficulty Walking Psychiatric: Reports: Anxiety, Depression. Denies: Agitation, Confusion ED EXAM, GENERAL - Physical Exam Exam: See Below Exam Limited By: No Limitations General Appearance: Alert, WD/WN, No Apparent Distress Eye Exam: Bilateral Eye: EOMI, Normal Inspection, PERRL Ears: Normal External Exam, Hearing Grossly Normal Nose: Normal Inspection, No Blood Throat/Mouth: Normal Inspection, Normal Lips, Normal Voice, No Airway Compromise Head: Atraumatic, Normocephalic Neck: Normal Inspection, Full Range of Motion Respiratory/Chest: No Respiratory Distress, Lungs Clear, Normal Breath Sounds, No Accessory Muscle Use Cardiovascular: Regular Rate, Rhythm, No Murmur GI/Abdominal: Normal Bowel Sounds, Soft, Non-Tender, No Organomegaly, No Distention Back Exam: Full Range of Motion, CVA Tenderness (L), CVA Tenderness (R) Extremities: Normal Inspection, Normal Range of Motion, Non-Tender, No Pedal Ed mickie, Normal Capillary Refill, Joint Swelling (left knee is examined without any evidence of swelling, effusion, erythema; skin intact.), Other (5/5 symmetric hand account support analyst and toe plantar/dorsiflexion; distal CMS intact) Neurological: Alert, Oriented, Normal Cognition, No Motor/Sensory Deficits Psychiatric: Normal Affect, Normal Mood Skin Exam: Warm, Dry, Intact, Normal Color, No Rash Course - Vital Signs Last Recorded V/S: Last Vital Signs Temp 97.7 F 09/20/20 13:11 Pulse 96 09/20/20 13:11 Resp 16 09/20/20 13:11 BP 128/83 09/20/20 13:11 Pulse Ox 97 09/20/20 13:11 - Orders/Labs/Meds Labs: Laboratory Tests 09/20/20 09/20/20 09/20/20 Range/Units 13:42 13:42 13:42 WBC 6.11 (5.00-10.00) 10^3/uL RBC 4.12 (3.80-5.50) 10^6/uL Hgb 12.3 (12.0-16.0) g/dL Hct 37.7 (37.0-47.0) % MCV 91.5 D (82.0-92.0) fL MCH 29.9 (27.0-31.0) pg MCHC 32.6 (32.0-36.0) g/dL RDW 14.4 (11.5-14.5) % Plt Count 280 D (150-400) 10^3/uL MPV 9.6 (7.4-10.4) fL Immature Gran % (Auto) 0.2 (0.0-5.0) % Neut % (Auto) 71.3 H (50.0-70.0) % Lymph % (Auto) 19.6 L (20.0-40.0) % [place] % (Auto) 5.9 (2.0-8.0) % Eos % (Auto) 2.5 (1.0-3.0) % Baso % (Auto) 0.5 (0.0-1.0) % Neut # (Auto) 4.36 (2.50-7.00) 10^3/uL Lymph # (Auto) 1.20 (1.00-4.00) 10^3/uL [place] # (Auto) 0.36 (0.10-0.80) 10^3/uL Eos # (Auto) 0.15 (0.10-0.30) 10^3/uL Baso # (Auto) 0.03 (0.00-0.10) 10^3/uL Immature Gran # (Auto) 0.01 (0.00-0.50) 10^3/uL Sodium 144 (136-145) mmol/L Potassium 3.9 (3.5-5.1) mmol/L Chloride 105 (98-107) mmol/L Carbon Dioxide 29.2 (21.0-32.0) mmol/L Anion Gap 13.7 (5-15) mmol/L BUN 13 (7-18) mg/dL Creatinine 0.65 (0.51-1.17) mg/dL Est Cr Clr Drug Dosing 93.38 mL/min Estimated GFR (MDRD) > 60 mL/min Glucose 116 (70-140) mg/dL Lactic Acid 2.1 H (0.4-2.0) mmol/L Calcium 9.1 (8.7-10.3) mg/dL Total Bilirubin 0.2 (0.2-1.0) mg/dL AST 17 (15-37) U/L ALT 33 (14-63) U/L Alkaline Phosphatase 85 (46-116) U/L C-Reactive Protein 0.4 (0.0-0.9) mg/dL Total Protein 6.8 (6.4-8.2) g/dL Albumin 3.46 (3.40-5.00) g/dL Specimen Type Urine Color (YELLOW) Urine Appearance (CLEAR) Urine pH (5.0-9.0) Ur Specific [place] (1.005-1.030) Urine Protein (NEGATIVE) mg/dL Urine Glucose (UA) (NEGATIVE) mg/dL Urine Ketones (NEGATIVE) mg/dL Urine Occult Blood (NEGATIVE) Urine Nitrite (NEGATIVE) Urine Bilirubin (NEGATIVE) Urine Urobilinogen (0.2-1.0) E.U./dL Ur Leukocyte Esterase (NEGATIVE) Urine RBC (0-5) /HPF Urine WBC (0-5) /HPF Ur Epithelial Cells /LPF Amorphous Sediment (0/HPF) /HPF Urine Bacteria (NONE TO FEW) /HPF Urine Other Urinalysis Comment 09/20/20 Range/Units 14:25 WBC (5.00-10.00) 10^3/uL RBC (3.80-5.50) 10^6/uL Hgb (12.0-16.0) g/dL Hct (37.0-47.0) % MCV (82.0-92.0) fL MCH (27.0-31.0) pg MCHC (32.0-36.0) g/dL RDW (11.5-14.5) % Plt Count (150-400) 10^3/uL MPV (7.4-10.4) fL Immature Gran % (Auto) (0.0-5.0) % Neut % (Auto) (50.0-70.0) % Lymph % (Auto) (20.0-40.0) % [place] % (Auto) (2.0-8.0) % Eos % (Auto) (1.0-3.0) % Baso % (Auto) (0.0-1.0) % Neut # (Auto) (2.50-7.00) 10^3/uL Lymph # (Auto) (1.00-4.00) 10^3/uL [place] # (Auto) (0.10-0.80) 10^3/uL Eos # (Auto) (0.10-0.30) 10^3/uL Baso # (Auto) (0.00-0.10) 10^3/uL Immature Gran # (Auto) (0.00-0.50) 10^3/uL Sodium (136-145) mmol/L Potassium (3.5-5.1) mmol/L Chloride (98-107) mmol/L Carbon Dioxide (21.0-32.0) mmol/L Anion Gap (5-15) mmol/L BUN (7-18) mg/dL Creatinine (0.51-1.17) mg/dL Est Cr Clr Drug Dosing mL/min Estimated GFR (MDRD) mL/min Glucose (70-140) mg/dL Lactic Acid (0.4-2.0) mmol/L Calcium (8.7-10.3) mg/dL Total Bilirubin (0.2-1.0) mg/dL AST (15-37) U/L ALT (14-63) U/L Alkaline Phosphatase (46-116) U/L C-Reactive Protein (0.0-0.9) mg/dL Total Protein (6.4-8.2) g/dL Albumin (3.40-5.00) g/dL Specimen Type Urincc Urine Color Yellow (YELLOW) Urine Appearance Slightly cloudy H (CLEAR) Urine pH 7.0 (5.0-9.0) Ur Specific [place] 1.025 (1.005-1.030) Urine Protein Negative (NEGATIVE) mg/dL Urine Glucose (UA) Negative (NEGATIVE) mg/dL Urine Ketones Negative (NEGATIVE) mg/dL Urine Occult Blood Small H (NEGATIVE) Urine Nitrite Negative (NEGATIVE) Urine Bilirubin Negative (NEGATIVE) Urine Urobilinogen 0.2 (0.2-1.0) E.U./dL Ur Leukocyte Esterase Negative (NEGATIVE) Urine RBC 10-20 H (0-5) /HPF Urine WBC 0-5 (0-5) /HPF Ur Epithelial Cells Few /LPF Amorphous Sediment Moderate H (0/HPF) /HPF Urine Bacteria Rare (NONE TO FEW) /HPF Urine Other See note H Urinalysis Comment See note - Re-Assessments/Exams Free Text/Narrative Re-Assessment/Exam: 09/20/20 15:20 Patient says she has a very difficult time with taking her prescription medications regularly as directed for some reason. Today her labs look great. I encouraged her to see a PCP to manage her medications and help with meth addiction. She says she doesn't have a PCP but saw a provider at [facility] about 6 weeks ago and will try tomorrow to get in there. After discussion of findings and recommendations, patient was discharged in stable condition. Departure - Departure Time of Disposition: 15:16 Disposition: Home, Self-Care 01 Condition: Good Clinical Impression: Methamphetamine use, Noncompliance with medication regimen - Discharge Information Referrals: Janny Villareal MD [Primary Care Provider] - Forms: ED Department Discharge Additional Instructions: Continue your regular medications as directed. Follow up ANGELICA with a provider to establish as primary provider to manage your medications and help with meth addiction. Drink 8 cups of water daily. Sepsis Event Note (ED) - Evaluation Sepsis Screening Result: Possible Sepsis Risk - Focused Exam Vital Signs: Vital Signs Temp Pulse Resp BP Pulse Ox 09/20/20 13:11 97.7 F 96 16 128/83 97
== END 2020-09-20 15:30 | disposition home or self-care (01) ==
LOC: KA.ED 13:09
DX: F15.90 Other stimulant use, unspecified, uncomplicated (principal); I10 Essential (primary) hypertension; Z88.6 Allergy status to analgesic agent; Z91.19 Patient's noncompliance with other medical treatment and regimen
CPT/HCPCS: 36415; 80053; 81001; 83605; 85025; 86140; 99284

== ENCOUNTER 2021-08-22 14:15 | Emergency (ER) | payer MEDICAID ==
[2021-08-22 14:46] VITALS: BP 136/84; PULSE 113
[2021-08-22] MEDS: Lidocaine 1% 5 ML VIAL ONE (14:49)
[2021-08-22] MEDS: Lidocaine 1% 5 ML VIAL INJECT ONE (14:50)
[2021-08-22] MEDS: Lidocaine 1% 50 ML MDV INJECT ONE (14:50)
[2021-08-22] MEDS: Bacitracin/Neomycin/Polymyxin B Oint 28.4 GM Tube TOP SCH (15:06)
[2021-08-22] MEDS: Bacitracin/Neomycin/Polymyxin B Oint 0.9 GM U/D Packet TOP ONE (15:07)
[2021-08-22] MEDS: Cephalexin 250 MG Cap PO ONE (15:13)
== END 2021-08-22 15:18 | disposition home or self-care (01) ==
LOC: KA.ED 14:15
DX: S61.012A Laceration without foreign body of left thumb without damage to nail, initial encounter (principal); I10 Essential (primary) hypertension; Z88.5 Allergy status to narcotic agent; W26.8XXA Contact with other sharp object(s), not elsewhere classified, initial encounter
CPT/HCPCS: 12001; 12011; 99282-25; 99283; A9270-GY

== ENCOUNTER 2022-01-02 05:14 | Emergency (ER) | payer MEDICAID ==
[2022-01-02] MEDS ORDERED: Sodium Chloride 0.9% 1,000 ML ONE (05:28)
[2022-01-02] MEDS ORDERED: Sodium Chloride 0.9% 1,000 ML IV ONE (05:48)
[2022-01-02 07:38] VITALS: BP 118/75; PULSE 115
== END 2022-01-02 06:10 ==
LOC: KA.ED 05:14
DX: O99.323 Drug use complicating pregnancy, third trimester (principal); F15.90 Other stimulant use, unspecified, uncomplicated; O99.333 Smoking (tobacco) complicating pregnancy, third trimester; F17.210 Nicotine dependence, cigarettes, uncomplicated; Z88.5 Allergy status to narcotic agent; Z3A.30 30 weeks gestation of pregnancy
CPT/HCPCS: 99284; J7030

== ENCOUNTER 2022-05-01 10:55 | Emergency (ER) | payer MEDICAID ==
[2022-05-01 11:34] VITALS: BP 134/87; PULSE 109
[2022-05-01 11:59] LABS: RESPIRATORY SYNCYTIAL VIR NAA NEGATIVE (NEGATIVE)
[2022-05-01 12:01] LABS: CORONAVIRUS COVID-19 NAA NEGATIVE (NEGATIVE)
[2022-05-01] MEDS: Amoxicillin 500 MG Cap PO ONE (12:14)
== END 2022-05-01 12:17 | disposition home or self-care (01) ==
LOC: KA.ED 10:55
DX: J02.0 Streptococcal pharyngitis (principal); I10 Essential (primary) hypertension; F17.210 Nicotine dependence, cigarettes, uncomplicated; Z88.5 Allergy status to narcotic agent; Z20.822 Contact with and (suspected) exposure to COVID-19
CPT/HCPCS: 0241U; 87651-QW; 99283; A9270-GY

== ENCOUNTER 2022-08-24 17:23 | Emergency (ER) | payer MEDICAID ==
[2022-08-24 17:35] VITALS: BP 140/94
[2022-08-24 17:59] VITALS: PULSE 90
== END 2022-08-24 18:30 | disposition home or self-care (01) ==
LOC: KA.ED 17:23
DX: J01.10 Acute frontal sinusitis, unspecified (principal); I10 Essential (primary) hypertension; F17.290 Nicotine dependence, other tobacco product, uncomplicated; Z88.5 Allergy status to narcotic agent
CPT/HCPCS: 99283; A9270-GY

== ENCOUNTER 2023-02-10 15:08 | Emergency (ER) | payer MEDICAID ==
[2023-02-10 15:27] VITALS: BP 143/95; PULSE 119
== END 2023-02-10 16:09 | disposition home or self-care (01) ==
LOC: KA.ED 15:08
DX: F99 Mental disorder, not otherwise specified (principal); F17.210 Nicotine dependence, cigarettes, uncomplicated; Z88.5 Allergy status to narcotic agent; Z79.899 Other long term (current) drug therapy
CPT/HCPCS: 99283

== ENCOUNTER 2023-02-19 03:05 | Emergency (ER) | payer MEDICAID ==
[2023-02-19] MEDS ORDERED: Sodium Chloride 0.9% 10 ML Syringe FLUSH PRN (03:20)
[2023-02-19 03:34] LABS: BASOPHILS ABSOLUTE AUTO 0.02 10^3/uL (0.00-0.10); BASOPHILS PERCENT AUTO 0.2 % (0.0-1.0); EOSINOPHILS ABSOLUTE AUTO 0.05 10^3/uL (0.10-0.30); EOSINOPHILS PERCENT AUTO 0.5 % (1.0-3.0); HEMATOCRIT 41.3 % (37.0-47.0); HEMOGLOBIN 13.3 g/dL (12.0-16.0); IMMATURE GRAN ABSOLUTE AUTO 0.01 10^3/uL (0.00-0.50); IMMATURE GRAN PERCENT AUTO 0.1 % (0.0-5.0); LYMPHOCYTES ABSOLUTE AUTO 2.34 10^3/uL (1.00-4.00); LYMPHOCYTES PERCENT AUTO 25.1 % (20.0-40.0); MEAN CORPUSCULAR HEMOGLOBIN 27.1 pg (27.0-31.0); MEAN CORPUSCULAR HGB CONC 32.2 g/dL (32.0-36.0); MEAN CORPUSCULAR VOLUME 84.3 fL (82.0-92.0); MEAN PLATELET VOLUME 9.6 fL (7.4-10.4); MONOCYTES ABSOLUTE AUTO 0.56 10^3/uL (0.10-0.80); NEUTROPHILS ABSOLUTE AUTO 6.36 10^3/uL (2.50-7.00); NEUTROPHILS PERCENT AUTO 68.1 % (50.0-70.0); PLATELET COUNT,PLT 373 10^3/uL (150-400); RED CELL DISTRIBUTION WIDTH 14.9 % (11.5-14.5); WHITE BLOOD CELL COUNT,WBC 9.34 10^3/uL (5.00-10.00)
[2023-02-19 03:52] LABS: HCG QUALITATIVE,SERUM NEGATIVE (NEGATIVE)
[2023-02-19 04:02] VITALS: BP 125/91; PULSE 105
[2023-02-19 04:03] LABS: ALANINE AMINOTRANSFERASE,ALT 18 U/L (14-63); ALBUMIN 3.83 g/dL (3.40-5.00); ALKALINE PHOSPHATASE 103 U/L (46-116); ANION GAP 13.5 mmol/L (5-15); ASPARTATE AMNIOTRANSFERASE,AST 11 U/L (15-37); BILIRUBIN TOTAL 0.2 mg/dL (0.2-1.0); BLOOD UREA NITROGEN,BUN 11 mg/dL (7-18); CALCIUM 8.9 mg/dL (8.7-10.3); CARBON DIOXIDE,CO2 28.1 mmol/L (21.0-32.0); CHLORIDE,CL 103 mmol/L (98-107); CREATININE 0.67 mg/dL (0.51-1.17); EST CRCL DRUG DOSING (CG) 88.99 mL/min; ESTIMATED GFR 121 mL/min (>=60); GLUCOSE RANDOM 98 mg/dL (70-140); POTASSIUM,K 3.6 mmol/L (3.5-5.1); PROTEIN TOTAL,TP 7.7 g/dL (6.4-8.2); SODIUM,NA 141 mmol/L (136-145); TSH ULTRASENSITIVE 0.999 uIU/mL (0.340-4.820)
[2023-02-19 04:09] LABS: AMPHETAMINES SCREEN, URINE NEGATIVE (NEGATIVE); BARBITURATE SCREEN,URINE NEGATIVE (NEGATIVE); BENZODIAZEPINES SCREEN,URINE NEGATIVE (NEGATIVE); COCAINE METABOLITES,URINE NEGATIVE (NEGATIVE); METHADONE SCREEN, URINE NEGATIVE (NEGATIVE); METHAMPHETAMINES SCREEN, URINE NEGATIVE (NEGATIVE); OXYCODONE SCREEN,URINE NEGATIVE (NEGATIVE); PCP SCREEN,URINE NEGATIVE (NEGATIVE); PROPOXYPHENE SCREEN,URINE NEGATIVE (NEGATIVE); TCA SCREEN,URINE NEGATIVE (NEGATIVE); THC SCREEN,URINE 50 NG/ML NEGATIVE (NEGATIVE)
== END 2023-02-19 04:30 | disposition home or self-care (01) ==
LOC: KA.ED 03:05
DX: R00.2 Palpitations (principal); F41.9 Anxiety disorder, unspecified; G47.00 Insomnia, unspecified; F19.10 Other psychoactive substance abuse, uncomplicated; I10 Essential (primary) hypertension; F17.210 Nicotine dependence, cigarettes, uncomplicated; Z88.5 Allergy status to narcotic agent; Z79.899 Other long term (current) drug therapy
CPT/HCPCS: 36415; 71045; 80053; 80305-QW; 84443; 84484; 84703; 85025; 93005; 93010; 99285

== ENCOUNTER 2023-02-19 15:12 | Emergency (ER) | payer MEDICAID ==
[2023-02-19 15:21] VITALS: BP 144/98; PULSE 132
[2023-02-19] MEDS ORDERED: LORazepam 2 MG/ML SDV IM ONE (15:59)
== END 2023-02-19 16:30 | disposition home or self-care (01) ==
LOC: KA.ED 15:12
DX: F41.0 Panic disorder [episodic paroxysmal anxiety] (principal); F19.10 Other psychoactive substance abuse, uncomplicated; I10 Essential (primary) hypertension; Z79.899 Other long term (current) drug therapy; Z88.5 Allergy status to narcotic agent
CPT/HCPCS: 99283

== ENCOUNTER 2023-02-21 19:13 | Emergency (ER) | payer MEDICAID ==
[2023-02-21 19:18] VITALS: BP 145/101; PULSE 120
== END 2023-02-21 19:26 | disposition left against medical advice (07) ==
LOC: KA.ED 19:13
DX: Z53.21 Procedure and treatment not carried out due to patient leaving prior to being seen by health care provider (principal)

== ENCOUNTER 2023-05-30 08:15 | Emergency (ER) | payer MEDICAID ==
[2023-05-30 08:36] LABS: BASOPHILS ABSOLUTE AUTO 0.03 10^3/uL (0.00-0.10); BASOPHILS PERCENT AUTO 0.5 % (0.0-1.0); EOSINOPHILS ABSOLUTE AUTO 0.16 10^3/uL (0.10-0.30); EOSINOPHILS PERCENT AUTO 2.4 % (1.0-3.0); HEMATOCRIT 39.1 % (37.0-47.0); HEMOGLOBIN 13.1 g/dL (12.0-16.0); IMMATURE GRAN ABSOLUTE AUTO 0.01 10^3/uL (0.00-0.50); IMMATURE GRAN PERCENT AUTO 0.2 % (0.0-5.0); LYMPHOCYTES ABSOLUTE AUTO 1.61 10^3/uL (1.00-4.00); LYMPHOCYTES PERCENT AUTO 24.5 % (20.0-40.0); MEAN CORPUSCULAR HEMOGLOBIN 28.7 pg (27.0-31.0); MEAN CORPUSCULAR HGB CONC 33.5 g/dL (32.0-36.0); MEAN CORPUSCULAR VOLUME 85.7 fL (82.0-92.0); MEAN PLATELET VOLUME 9.7 fL (7.4-10.4); MONOCYTES ABSOLUTE AUTO 0.73 10^3/uL (0.10-0.80); MONOCYTES PERCENT AUTO 11.1 % (2.0-8.0); NEUTROPHILS ABSOLUTE AUTO 4.03 10^3/uL (2.50-7.00); NEUTROPHILS PERCENT AUTO 61.3 % (50.0-70.0); PLATELET COUNT,PLT 342 10^3/uL (150-400); RED BLOOD CELL COUNT 4.56 10^6/uL (3.80-5.50); RED CELL DISTRIBUTION WIDTH 14.4 % (11.5-14.5); WHITE BLOOD CELL COUNT,WBC 6.57 10^3/uL (5.00-10.00)
[2023-05-30 08:46] LABS: AMPHETAMINES SCREEN, URINE NEGATIVE (NEGATIVE); BARBITURATE SCREEN,URINE NEGATIVE (NEGATIVE); BENZODIAZEPINES SCREEN,URINE NEGATIVE (NEGATIVE); COCAINE METABOLITES,URINE NEGATIVE (NEGATIVE); METHADONE SCREEN, URINE NEGATIVE (NEGATIVE); METHAMPHETAMINES SCREEN, URINE NEGATIVE (NEGATIVE); OXYCODONE SCREEN,URINE NEGATIVE (NEGATIVE); PCP SCREEN,URINE NEGATIVE (NEGATIVE); PROPOXYPHENE SCREEN,URINE NEGATIVE (NEGATIVE); TCA SCREEN,URINE NEGATIVE (NEGATIVE); THC SCREEN,URINE 50 NG/ML NEGATIVE (NEGATIVE)
[2023-05-30 08:51] LABS: ALANINE AMINOTRANSFERASE,ALT 20 U/L (14-63); ALBUMIN 3.88 g/dL (3.40-5.00); ALKALINE PHOSPHATASE 83 U/L (46-116); ASPARTATE AMNIOTRANSFERASE,AST 11 U/L (15-37); BILIRUBIN TOTAL 0.3 mg/dL (0.2-1.0); BLOOD UREA NITROGEN,BUN 12 mg/dL (7-18); CALCIUM 8.9 mg/dL (8.7-10.3); CARBON DIOXIDE,CO2 30.5 mmol/L (21.0-32.0); CHLORIDE,CL 102 mmol/L (98-107); CREATININE 0.75 mg/dL (0.51-1.17); GLUCOSE RANDOM 104 mg/dL (70-140); POTASSIUM,K 3.5 mmol/L (3.5-5.1); PROTEIN TOTAL,TP 7.5 g/dL (6.4-8.2); SODIUM,NA 142 mmol/L (136-145)
[2023-05-30 09:02] LABS: APPEARANCE,URINE SLIGHTLY CLOUDY (CLEAR); BILIRUBIN,URINE SMALL (NEGATIVE); COLOR,URINE YELLOW (YELLOW); GLUCOSE,URINE NEGATIVE (NEGATIVE); KETONES,URINE 40 mg/dL (NEGATIVE); LEUKOCYTE ESTERASE,URINE NEGATIVE (NEGATIVE); NITRITE,URINE NEGATIVE (NEGATIVE); OCCULT BLOOD,URINE NEGATIVE (NEGATIVE); PH,URINE 6.5 (5.0-9.0); PROTEIN,URINE NEGATIVE (NEGATIVE); UROBILINOGEN,URINE 0.2 E.U./dL (0.2-1.0)
[2023-05-30 09:06] LABS: ESTIMATED GFR 110 mL/min (>=60)
[2023-05-30 09:07] LABS: BACTERIA,URINE RARE /HPF (NONE TO FEW); EPITHELIAL CELLS,URINE FEW /LPF; MUCUS,URINE RARE /LPF (NEGATIVE); RBC,URINE 0-5 /HPF (0-5); WBC,URINE 0-5 /HPF (0-5)
[2023-05-30 10:28] VITALS: BP 114/79; PULSE 100
== END 2023-05-30 10:25 | disposition home or self-care (01) ==
LOC: KA.ED 08:15
DX: F19.10 Other psychoactive substance abuse, uncomplicated (principal); F41.9 Anxiety disorder, unspecified; I10 Essential (primary) hypertension; J45.909 Unspecified asthma, uncomplicated; Z79.899 Other long term (current) drug therapy; Z88.5 Allergy status to narcotic agent
CPT/HCPCS: 36415; 80053; 80305-QW; 81001; 85025; 99283; Q3014

== ENCOUNTER 2023-05-30 17:58 | Emergency (ER) | payer MEDICAID ==
[2023-05-30 18:41] VITALS: BP 108/69; PULSE 115
== END 2023-05-30 19:59 | disposition home or self-care (01) ==
LOC: KA.ED 17:58 → SUPCPDRO 17:58 → KA.ED 19:59
DX: F15.10 Other stimulant abuse, uncomplicated (principal)
CPT/HCPCS: 99283

== ENCOUNTER 2023-06-03 10:14 | Emergency (ER) | payer MEDICAID ==
[2023-06-03 10:23] VITALS: BP 129/85; PULSE 111
== END 2023-06-03 11:50 | disposition home or self-care (01) ==
LOC: KA.ED 10:14
DX: K92.1 Melena (principal); I10 Essential (primary) hypertension; J45.909 Unspecified asthma, uncomplicated; Z88.5 Allergy status to narcotic agent
CPT/HCPCS: 99284

== ENCOUNTER 2023-06-14 23:30 | Emergency (ER) | payer MEDICAID ==
[2023-06-14 23:58] LABS: BASOPHILS ABSOLUTE AUTO 0.02 10^3/uL (0.00-0.10); BASOPHILS PERCENT AUTO 0.2 % (0.0-1.0); EOSINOPHILS ABSOLUTE AUTO 0.03 10^3/uL (0.10-0.30); EOSINOPHILS PERCENT AUTO 0.4 % (1.0-3.0); HEMATOCRIT 37.8 % (37.0-47.0); HEMOGLOBIN 12.8 g/dL (12.0-16.0); IMMATURE GRAN ABSOLUTE AUTO 0.01 10^3/uL (0.00-0.50); IMMATURE GRAN PERCENT AUTO 0.1 % (0.0-5.0); LYMPHOCYTES ABSOLUTE AUTO 1.53 10^3/uL (1.00-4.00); LYMPHOCYTES PERCENT AUTO 18.6 % (20.0-40.0); MEAN CORPUSCULAR HEMOGLOBIN 29.8 pg (27.0-31.0); MEAN CORPUSCULAR HGB CONC 33.9 g/dL (32.0-36.0); MEAN CORPUSCULAR VOLUME 87.9 fL (82.0-92.0); MEAN PLATELET VOLUME 9.2 fL (7.4-10.4); MONOCYTES ABSOLUTE AUTO 0.61 10^3/uL (0.10-0.80); MONOCYTES PERCENT AUTO 7.4 % (2.0-8.0); NEUTROPHILS ABSOLUTE AUTO 6.03 10^3/uL (2.50-7.00); NEUTROPHILS PERCENT AUTO 73.3 % (50.0-70.0); PLATELET COUNT,PLT 345 10^3/uL (150-400); RED CELL DISTRIBUTION WIDTH 14.9 % (11.5-14.5); WHITE BLOOD CELL COUNT,WBC 8.23 10^3/uL (5.00-10.00)
[2023-06-15 00:11] LABS: HCG QUALITATIVE,SERUM NEGATIVE (NEGATIVE)
[2023-06-15 00:13] LABS: ANION GAP 19.3 mmol/L (5-15); BLOOD UREA NITROGEN,BUN 13 mg/dL (7-18); CALCIUM 9.1 mg/dL (8.7-10.3); CARBON DIOXIDE,CO2 24.4 mmol/L (21.0-32.0); CHLORIDE,CL 100 mmol/L (98-107); CREATININE 0.64 mg/dL (0.51-1.17); EST CRCL DRUG DOSING (CG) 102.58 mL/min; ESTIMATED GFR 123 mL/min (>=60); GLUCOSE RANDOM 107 mg/dL (70-140); POTASSIUM,K 3.7 mmol/L (3.5-5.1); SODIUM,NA 140 mmol/L (136-145)
[2023-06-15 01:00] VITALS: BP 128/80; PULSE 100
== END 2023-06-15 00:57 | disposition home or self-care (01) ==
LOC: KA.ED 23:30
DX: N93.9 Abnormal uterine and vaginal bleeding, unspecified (principal); F06.4 Anxiety disorder due to known physiological condition; F15.10 Other stimulant abuse, uncomplicated; I10 Essential (primary) hypertension; Z88.5 Allergy status to narcotic agent
CPT/HCPCS: 80048; 84703; 85025; 99284

== ENCOUNTER 2023-06-21 16:13 | Emergency (ER) | payer MEDICAID ==
[2023-06-21 17:19] LABS: BASOPHILS ABSOLUTE AUTO 0.03 10^3/uL (0.00-0.10); BASOPHILS PERCENT AUTO 0.4 % (0.0-1.0); EOSINOPHILS ABSOLUTE AUTO 0.07 10^3/uL (0.10-0.30); HEMATOCRIT 41.9 % (37.0-47.0); HEMOGLOBIN 13.7 g/dL (12.0-16.0); LYMPHOCYTES ABSOLUTE AUTO 1.96 10^3/uL (1.00-4.00); LYMPHOCYTES PERCENT AUTO 28.3 % (20.0-40.0); MEAN CORPUSCULAR HGB CONC 32.7 g/dL (32.0-36.0); MEAN CORPUSCULAR VOLUME 88.8 fL (82.0-92.0); MEAN PLATELET VOLUME 9.6 fL (7.4-10.4); MONOCYTES ABSOLUTE AUTO 0.59 10^3/uL (0.10-0.80); MONOCYTES PERCENT AUTO 8.5 % (2.0-8.0); NEUTROPHILS ABSOLUTE AUTO 4.27 10^3/uL (2.50-7.00); NEUTROPHILS PERCENT AUTO 61.8 % (50.0-70.0); PLATELET COUNT,PLT 352 10^3/uL (150-400); RED BLOOD CELL COUNT 4.72 10^6/uL (3.80-5.50); RED CELL DISTRIBUTION WIDTH 14.5 % (11.5-14.5); WHITE BLOOD CELL COUNT,WBC 6.92 10^3/uL (5.00-10.00)
[2023-06-21 17:37] LABS: ALBUMIN 4.39 g/dL (3.40-5.00); ANION GAP 15.7 mmol/L (5-15); BILIRUBIN TOTAL 0.7 mg/dL (0.2-1.0); CARBON DIOXIDE,CO2 27.2 mmol/L (21.0-32.0); CREATININE 0.66 mg/dL (0.51-1.17); EST CRCL DRUG DOSING (CG) 104.04 mL/min; POTASSIUM,K 3.9 mmol/L (3.5-5.1); PROTEIN TOTAL,TP 8.3 g/dL (6.4-8.2)
[2023-06-21 17:41] LABS: PROTHROMBIN TIME 10.6 SEC (9.3-12.2); PTT,PARTIAL THROMBOPLSTIN TIME 24.2 SEC (23.3-34.9)
[2023-06-21 17:45] LABS: CALCIUM 9.1 mg/dL (8.7-10.3)
[2023-06-21 17:50] LABS: AMPHETAMINES SCREEN, URINE POSITIVE (NEGATIVE); BARBITURATE SCREEN,URINE NEGATIVE (NEGATIVE); BENZODIAZEPINES SCREEN,URINE NEGATIVE (NEGATIVE); COCAINE METABOLITES,URINE NEGATIVE (NEGATIVE); METHADONE SCREEN, URINE NEGATIVE (NEGATIVE); METHAMPHETAMINES SCREEN, URINE POSITIVE (NEGATIVE); OXYCODONE SCREEN,URINE NEGATIVE (NEGATIVE); PCP SCREEN,URINE NEGATIVE (NEGATIVE); PROPOXYPHENE SCREEN,URINE NEGATIVE (NEGATIVE); TCA SCREEN,URINE NEGATIVE (NEGATIVE); THC SCREEN,URINE 50 NG/ML NEGATIVE (NEGATIVE)
[2023-06-21 18:22] VITALS: BP 125/84; PULSE 100
== END 2023-06-21 18:20 | disposition home or self-care (01) ==
LOC: KA.ED 16:13
DX: F15.10 Other stimulant abuse, uncomplicated (principal); F22 Delusional disorders; I10 Essential (primary) hypertension; J45.909 Unspecified asthma, uncomplicated; Z88.5 Allergy status to narcotic agent
CPT/HCPCS: 36415; 80053; 80305-QW; 85025; 85610; 85730; 99284

== ENCOUNTER 2023-07-03 18:15 | Emergency (ER) | payer MEDICAID ==
[2023-07-03 18:52] LABS: APPEARANCE,URINE SLIGHTLY CLOUDY (CLEAR); BACTERIA,URINE FEW /HPF (NONE TO FEW); BILIRUBIN,URINE SMALL (NEGATIVE); COLOR,URINE YELLOW (YELLOW); EPITHELIAL CELLS,URINE RARE /LPF; GLUCOSE,URINE NEGATIVE (NEGATIVE); KETONES,URINE >=160 mg/dL (NEGATIVE); LEUKOCYTE ESTERASE,URINE NEGATIVE (NEGATIVE); NITRITE,URINE NEGATIVE (NEGATIVE); OCCULT BLOOD,URINE NEGATIVE (NEGATIVE); PH,URINE 5.5 (5.0-9.0); PROTEIN,URINE TRACE mg/dL (NEGATIVE); RBC,URINE 0-5 /HPF (0-5); UROBILINOGEN,URINE 0.2 E.U./dL (0.2-1.0)
[2023-07-03 18:53] LABS: MUCUS,URINE RARE /LPF (NEGATIVE)
[2023-07-03 19:14] VITALS: BP 127/84; PULSE 105
== END 2023-07-03 19:20 | disposition home or self-care (01) ==
LOC: KA.ED 18:15
DX: E86.0 Dehydration (principal); R82.4 Acetonuria; I10 Essential (primary) hypertension; Z88.5 Allergy status to narcotic agent
CPT/HCPCS: 81001; 99284

== ENCOUNTER 2024-09-10 12:10 | Emergency (ER) | payer BC, MEDICAID, OTHER ==
[2024-09-10 17:01] VITALS: BP 125/71; PULSE 94
== END 2024-09-10 18:09 | disposition home or self-care (01) ==
LOC: KA.ED 12:10
DX: F32.A Depression, unspecified (principal); F15.10 Other stimulant abuse, uncomplicated; F22 Delusional disorders; F29 Unspecified psychosis not due to a substance or known physiological condition; Z88.5 Allergy status to narcotic agent; Z79.899 Other long term (current) drug therapy
CPT/HCPCS: 99284; 99285